=== PATIENT | female | born 1960 | race Caucasian/White ===

== ENCOUNTER 2024-11-21 07:53 | Emergency (ER) | payer MEDICARE ==
[~2024-11-21] VITALS: Ht 160 cm; Wt 72.6 kg
[2024-11-21 07:57] VITALS: BP 169/91; PULSE 67; RESP 16; TEMP 97.9
--- NOTE | 2024-11-21 08:45 | ERN ---
General Chief Complaint: Cough Stated Complaint: COUGH, SOB W/ COUGH Time Seen by MD: 07:59 History of Present Illness Initial Comments 64-year-old female, history of fibromyalgia, hypertension, presents for cough and congestion. Patient reports about a week ago she developed a productive cough, sore throat, body aches and fevers. The fevers sore throat and body aches have gone away but she continues with a lingering cough. Nonproductive. Mild shortness of breath with deep respiration and some pleuritic discomfort. No leg swelling. No billy chest pain. No vomiting or dizziness. Allergies: Coded Allergies: Penicillins (Unverified Allergy, Unknown, 11/21/24) acetaminophen (Unverified Allergy, Unknown, 11/21/24) propoxyphene (Unverified Allergy, Unknown, 11/21/24) sulfamethoxazole (Unverified Allergy, Unknown, 11/21/24) trimethoprim (Unverified Allergy, Unknown, 11/21/24) Past Medical History Past Medical History: Hypertension, Other Past Surgical History: Cholecystectomy, Other Surgical History Other: SPINAL FUSION ROS Dictation CONSTITUTIONAL: No chills, no fever, no weakness, no diaphoresis, no malaise. HEAD/FACE: No signs of trauma. EENT: No eye pain, no blurred vision, no tearing, no double vision, no ear pain, no ear discharge, no nose pain, no nasal congestion, no throat pain, no throat swelling, no mouth pain. RESPIRATORY: Nonproductive hacking cough CARDIOVASCULAR: No chest pain, no edema, no palpitations, no syncope. GASTROINTESTINAL/ABDOMINAL: No abdominal pain, no constipation, no diarrhea, no nausea, no vomiting. GENITOURINARY: No abnormal discharge, no dysuria, no frequent urination, no hematuria. No complaints of pain in the genitals. MUSCULOSKELETAL: No back pain, no gout, no joint pain, no joint swelling, no muscle pain, no muscle stiffness, no neck pain. INTEGUMENTARY: No change in color, no change in hair/nails, no dryness, no lesion, no lumps, no rash. NEUROLOGICAL/PSYCH: No anxiety, not depressed, no emotional problem, no headache, no numbness, no pre-existing deficit, no history of seizures, no tremors, no weakness. HEMATOLOGIC/LYMPHATIC: Not anemic, no history of blood clots, no apparent blee ding, no bruising, glands not swollen. All Systems Negative, Except as Noted. Physical Exam Physical Exam Dictation VITAL SIGNS: Reviewed. GENERAL APPEARANCE: Alert, oriented x3, no acute distress HEAD AND FACE: Non-traumatic. EYES: PERRL, pink conjunctivas, eyelid no trauma, anterior chamber clear. EARS: Pinnas intact and no signs of trauma or erythema. Ear canals clear and no discharge. TMs no erythema. NOSE: No discharge, no bleeding. OROPHARYNX: Mouth normal, teeth no caries, tongue pink. Pharynx clear, no erythema. Tonsils no exudates, no abscesses noted. Mucous membrane moist. NECK: Supple, non-tender, no thyromegaly, no masses, no JVD, no bruits. BREAST: Deferred. CHEST: No tenderness, no crepitus, no paradoxical movement, no retractions. LUNGS: Minimal coarse breath sounds on exhalation, very minimal wheezing HEART: Regular rate, regular rhythm, no murmur, no gallops. VASCULAR: No peripheral edema. ABDOMEN: Soft, positive bowel sounds, nondistended, no guarding, nontender, no rebound, no masses no hepatomegaly, no splenomegaly, no Juarez's sign, no hernias. RECTAL: Deferred. GENITAL: Deferred. NEUROLOGICAL: Normal speech, gross motor function intact, gross sensory function intact. MUSCULOSKELETAL: Neck nontender, full range of motion, back nontender, full range of motion. EXTREMITIES: Nontender, full range of motion. SKIN: Color pink, dry, no turgor, no rash, no lacerations, no abrasions, no contusions. LYMPHATICS: Deferred. MDM CC: Cough, shortness of breath for a week, congestion Historian: Patient Comorbidities: Hypertension cholecystectomy, with spinal fusion, obesity Limitations by social determinants of health: None Differential diagnosis: Flu-like illness, pneumonia, other Vital signs: 169/91, oxygen saturation 93% on room air. Otherwise unremarkable. lung sounds: Very mild expiratory wheezing and coarseness, no respiratory distress CXR ( independently ordered and interpreted by me ): No focal infiltrates, no cardiomegaly pleural effusions or signs of vascular congestion. Treatment in ED: IM Solu-Medrol Plan: Short course of steroids, albuterol inhaler, symptomatic relief. PCP follow up. ED Course Orders Procedure Category Date Status Time Influenza Type A & B, LAB 11/21/24 In Process Rapid 08:13 Rapid (Group A Strep) LAB 11/21/24 In Process 08:13 Covid19 (Sars Antigen LAB 11/21/24 In Process Rapid) 08:13 Chest 1vw RAD 11/21/24 Taken 08:15 Vital Signs Date Time Temp Pulse Resp B/P (MAP) Pulse Ox O2 Delivery O2 Flow Rate FiO2 11/21/24 07:57 97.9 67 16 169/91 93 Room Air 0 DX & DISP Disposition: Discharge Departure Impression: Primary Impression: Acute bronchitis Condition: Stable Scripts Albuterol Sulfate (Ventolin Hfa/Proventil Hfa/Proair Hfa) 90 Mcg Puff 2 PUFF IH Q4HPRN PRN for wheezing for 30 Days, #18 GM 0 Refills Prov: TRAVIS MOORE DO 11/21/24 Methylprednisolone (Medrol) 4 Mg Tab.ds.pk 1 TAB PO AD for 6 Days, #21 TAB 0 Refills 6 on day 1 then reduce by one tablet daily until gone Prov: TRAVIS MOORE DO 11/21/24 Additional Instructions: Your symptoms and chest x-ray are most consistent with a bronchitis. This is often a viral respiratory infection that does not require antibiotics. Your vital signs are stable in your oxygen level is clear. Your chest x-ray is clear. You received a dose of steroids here in the ER. I have also prescribed a short course of steroids. These will help with the inflammation in your lungs. You can use [id number] cough and cold medications as needed. I have also prescribed an albuterol inhaler. Please use for shortness of breath, wheezing, and coughing attacks. Take two puffs every 4 hours as needed. Please follow up with the primary doctor if your symptoms do not improve within the next week or so. Please return to the emergency department if you have any concerns. TRAVIS MOORE DO Nov 21, 2024 08:45
[2024-11-21] MEDS ORDERED: METH4TAB3 PO (08:52)
[2024-11-21] MEDS ORDERED: ALBUHFA IH (08:52)
[2024-11-21 09:00] LABS: RAPID GROUP A STREP negative (NEGATIVE)
--- NOTE | 2024-11-21 09:06 | HMCIMG ---
CHEST 1VW HISTORY: Congestion COMPARISON: None FINDINGS: A frontal projection of the chest was obtained. No acute pulmonary infiltrates is seen. The heart is normal in size. Prominent interstitial markings are seen. No evidence of aortic calcification is seen. IMPRESSION: 1. No acute pulmonary infiltrate is seen.
[2024-11-21 09:10] LABS: COVID19 (SARS ANTIGEN RAPID) PRESUMPTIVE NEGATIVE (NEGATIVE); INFLUENZA TYPE A Negative For Type A (NEGATIVE); INFLUENZA TYPE B Negative For Type B (NEGATIVE)
== END 2024-11-21 08:57 | disposition home or self-care (01) ==
LOC: EDH 07:53
DX: J20.9 Acute bronchitis, unspecified (principal); I10 Essential (primary) hypertension; E66.9 Obesity, unspecified; M79.7 Fibromyalgia; Z88.0 Allergy status to penicillin; Z88.1 Allergy status to other antibiotic agents; Z88.2 Allergy status to sulfonamides; Z90.49 Acquired absence of other specified parts of digestive tract; Z20.822 Contact with and (suspected) exposure to COVID-19
CPT/HCPCS: 71045; 87426; 87804; 87880; 99284